=== PATIENT | female | born 1990 | race Caucasian/White ===

== ENCOUNTER → 2017-12-10 | Outpatient (CLI) | payer OTHER | END | disposition home or self-care (01) | LOC: C.PAPS 13:13 | PROVIDERS: ATTEND Physician Assistant | DX: Z01.419 Encounter for gynecological examination (general) (routine) without abnormal findings (principal); R87.610 Atypical squamous cells of undetermined significance on cytologic smear of cervix (ASC-US) ==

== ENCOUNTER → 2018-02-04 | Outpatient (CLI) | payer OTHER | END | disposition home or self-care (01) | LOC: C.PATHSPEC 17:44 | PROVIDERS: ATTEND Obstetrics & Gynecology | DX: R87.612 Low grade squamous intraepithelial lesion on cytologic smear of cervix (LGSIL) (principal); R87.610 Atypical squamous cells of undetermined significance on cytologic smear of cervix (ASC-US) ==

== ENCOUNTER 2023-09-13 16:00 | Inpatient (IN) ==
[2023-09-13] MEDS ORDERED: LIDOCAINE 1% LOCAL 20 ML VIAL ONE (16:27)
--- NOTE | 2023-09-13 16:53 | Delivery Summary ---
Vaginal Delivery Summary Date of Service September 13, 2023 Vaginal Delivery Summary and 2nd Degree LAC Spontaneous vaginal delivery group B strep -38 weeks arrived in active labor she arrived at [facility] and quickly progressed to fully dilated I offered epidural I also offered artificial rupture of membranes as I did not really think there was time for epidural to impact her pain she agreed with artificial rupture of membranes she then pushed over several contractions delivery of baby in occiput anterior position once the head was born there were 2 loose nuchal cords that were passed over the baby's head gentle traction on the baby combined with maternal expulsive efforts with no excessive force easy delivery live vigorous female delayed cord clamping the cord was eventually cut and clamped cord blood up to 6 obtained placenta removed with traction IM Pitocin was started as we did not have an IV at she had tearing in the right urethral region and a second-degree tear a Mcdonald catheter was placed in her bladder prior to avoid closure of the urethra during the repair and the repair was done with 3-0 Vicryl with several interrupted sutures of 3-0 Vicryl was then used to repair the second-degree tear in the usual fashion sponge and instrument counts were correct estimated blood loss 300 mL of note use local anesthetic into the vulva and vagina regions 1% lidocaine [facility] Vaginal Delivery Charge Delivery Type Details: and 2nd Degree LAC
[2023-09-13] MEDS ORDERED: OXYTOCIN 30 UNITS/500ML NSS IV ONE (16:55)
[2023-09-13] MEDS ORDERED: BENZOCAINE 20% SPRY 85 APPLN/85 GM CAN EXT PRN (17:04)
[2023-09-13] MEDS ORDERED: OXYTOCIN 30 UNITS/NSS 30 UNITS/500 ML BAG IV PRN (17:04)
[2023-09-13] MEDS ORDERED: DIPHTHERIA/TETANUS/PERTUSSIS Vaccine (Tdap, Age 7+yrs) 0.5mL SYR/VL IM ONE (17:04)
[2023-09-13] MEDS ORDERED: HYDROCORTISONE ACETATE 25 MG SUPP PR PRN (17:04)
[2023-09-13] MEDS ORDERED: ACETAMINOPHEN 325 MG TAB PO PRN (17:04)
[2023-09-13] MEDS ORDERED: bisacodyL 10 MG SUPP PR PRN (17:04)
[2023-09-13] MEDS ORDERED: OXYTOCIN 10 UNITS/ML VIAL IM ONE (17:15)
[2023-09-13] MEDS ORDERED: LACTATED RINGER'S 1,000 ML IV ONE (19:36)
[2023-09-13 20:04] LABS: Hematocrit (blood only) 34.5 % (37.0-47.0); Hemoglobin 12.3 g/dl (12.0-16.0); Mean Corpuscular Hemoglobin 31.7 pg (25.0-34.0); Mean Corpuscular Hgb Conc 35.7 g/dL (32.0-36.0); Mean Corpuscular Volume 88.9 fL (80.0-100.0); Platelet Count 171 K/uL (130-400); RDW Standard Deviation 42.3 fL (36.4-46.3); Red Blood Count 3.88 M/uL (4.20-5.40); White Blood Count 18.02 K/ul (4.8-10.8)
[2023-09-13] MEDS: FLUoxetine HCL 20 MG CAP PO SCH (21:12)
[2023-09-13] MEDS: DOCUSATE SODIUM 100 MG CAP PO SCH (22:18)
[2023-09-13] MEDS: IBUPROFEN 600 MG TAB PO PRN (22:18)
[2023-09-14] MEDS: IBUPROFEN 600 MG TAB PO PRN ×5 (03:36→21:32)
--- NOTE | 2023-09-14 06:39 | Obstetrical Progress Note ---
Date of Service September 14, 2023 Assessment & Plan (1) Encounter for care and examination after delivery: Plan -Pt doing well clinically -Vital signs reviewed and WNL -HGB reviewed -Blood type A+ -Rubella no immune, MMR vaccine today -Encourage ambulation -Monitor and control pain with Motrin prn -Monitor lochia -Encourage Admission and Anticipated Discharge Date Admission Date: September 13, 2023 Supervising Physician Co-Signing Physician Notes Resident Physician Supervision Note: I was present with Dr. Rush during the history and exam. I discussed the case with the resident and agree with the findings and plan as documented in the note. Any exceptions or clarifications are listed here: [None] Documented By: Day Jara MD, FACOG Subjective 32 yo post- day 1 s/p Ambulation: ambulating normally Voiding: no voiding problems Passing Gas:: Yes Diet Tolerance:: regular diet Lochia:: Small Feeding Type:: Current Pain Level:controlled Resting comfortably this AM in NAD. Denies ESTEVEZ, CP, SOB, N/V/D, LE pain/swelling. Review of Systems Review of Systems: All systems reviewed & are unremarkable except as noted in HPI & below Physical Exam Physical Exam: General: patient resting comfortably, NAD, non-toxic in appearance, AA&O x 4, answers questions appropriately. Skin: warm, dry, intact HEENT: NC/AT, anicteric sclera, conjunctiva without injection, moist mucus m embranes. Heart: +S1/S2, regular, no m/r/g Lungs: equal air entry bilaterally, no rales/rhonchi/wheezes Abd: +BS, soft, NT/ND, uterine fundus firm at umbilicus Ext: warm, no clubbing/cyanosis or edema, Yara's neg. Neuro: nonfocal, patient AA&O x 4, speech intact, no facial droop, moving all extremities on command. Results & Data Vital Signs (Past 12 Hours) Vital Signs Temp Pulse Pulse Pulse Resp BP BP 09/14/23 03:45 36.5 C 72 18 115/67 09/13/23 23:55 36.7 C 71 18 115/71 09/13/23 21:38 36.5 C 74 18 107/70 09/13/23 21:07 74 112/63 09/13/23 20:52 76 115/65 09/13/23 20:37 68 111/60 09/13/23 20:34 71 110/57 L 09/13/23 20:27 71 110/62 09/13/23 20:22 75 107/65 09/13/23 20:17 69 105/65 09/13/23 20:12 71 105/63 09/13/23 20:07 69 109/63 09/13/23 20:02 71 109/61 09/13/23 19:57 71 108/60 09/13/23 19:52 70 107/59 L 09/13/23 19:50 70 108/63 09/13/23 19:43 72 126/58 L 09/13/23 19:37 71 115/68 09/13/23 19:31 106 H 115/59 L 09/13/23 19:26 65 94/51 L 09/13/23 19:07 69 103/58 L Pulse Ox O2 Del Method 09/14/23 03:45 09/13/23 23:55 09/13/23 21:38 96 Room Air 09/13/23 21:07 09/13/23 20:52 09/13/23 20:37 09/13/23 20:34 09/13/23 20:27 09/13/23 20:22 09/13/23 20:17 09/13/23 20:12 09/13/23 20:07 09/13/23 20:02 09/13/23 19:57 09/13/23 19:52 09/13/23 19:50 09/13/23 19:43 09/13/23 19:37 09/13/23 19:31 09/13/23 19:26 09/13/23 19:07 Resident Activity Tracking Resident Involvement: Resident Care Provided Care Provided: OB Delivery
[2023-09-14] MEDS ORDERED: MEASLES, MUMPS & RUBELLA VIRUS VACCINE (MMR) VIAL SQ ONE (06:55)
[2023-09-14 08:44] LABS: Hematocrit (blood only) 30.7 % (37.0-47.0); Hemoglobin 10.9 g/dl (12.0-16.0); Mean Corpuscular Hemoglobin 32.2 pg (25.0-34.0); Mean Corpuscular Hgb Conc 35.5 g/dL (32.0-36.0); Mean Corpuscular Volume 90.8 fL (80.0-100.0); Platelet Count 159 K/uL (130-400); RDW Coefficient of Variation 13.1 % (11.5-14.5); RDW Standard Deviation 42.6 fL (36.4-46.3); Red Blood Count 3.38 M/uL (4.20-5.40); White Blood Count 14.86 K/ul (4.8-10.8)
[2023-09-14] MEDS: PRENATAL VITAMIN 1 TAB PO SCH (08:59)
[2023-09-14] MEDS: DOCUSATE SODIUM 100 MG CAP PO SCH ×2 (08:59→20:52)
[2023-09-14] MEDS ORDERED: FLUoxetine HCL 10 MG CAP PO SCH (09:00)
[2023-09-14] MEDS ORDERED: bisacodyL 5 MG TABEC PO SCH (20:00)
[2023-09-14] MEDS: FLUoxetine HCL 20 MG CAP PO SCH (20:53)
[2023-09-15] MEDS: IBUPROFEN 600 MG TAB PO PRN ×2 (02:12→07:28)
--- NOTE | 2023-09-15 07:54 | Obstetrical Progress Note ---
Date of Service September 15, 2023 Assessment & Plan (1) Supervision of normal first : , ready for D/C home, instructions reviewed and all questions answered. Subjective Ambulation: ambulating normally Voiding: no voiding problems Passing Gas:: Yes Diet Tolerance:: regular diet Lochia:: Small Feeding Type:: breast feeding Physical Exam Patient during visit, exam limited to avoid interruption. Constitutional WD/WN, vitals as above Respiratory normal respiratory effort Chest (Breasts) Chest: normal inspection of chest Psychiatric A+Ox3, euthymic affect Results & Data Vital Signs (Past 12 Hours) Vital Signs Temp Pulse Resp BP Pulse Ox O2 Del Method 09/14/23 23:03 98.4 F 68 18 100/63 97 Room Air
[2023-09-15] MEDS: DOCUSATE SODIUM 100 MG CAP PO SCH (08:15)
[2023-09-15] MEDS: PRENATAL VITAMIN 1 TAB PO SCH (08:15)
== END 2023-09-15 11:04 | disposition home or self-care (01) | DRG 807 ==
LOC: OPB 16:00 → 4S1 16:02 → 4E2 22:13

== ENCOUNTER 2025-04-12 16:56 | Inpatient (IN) ==
[2025-04-12] MEDS ORDERED: OXYTOCIN 30 UNITS/NSS 30 UNITS/500 ML BAG IV PRN ×2 (17:35→19:31)
[2025-04-12] MEDS ORDERED: CALCIUM CARBONATE 500 MG CHEWABLE TAB PO PRN (17:35)
[2025-04-12] MEDS ORDERED: LIDOCAINE 1% LOCAL 20 ML VIAL INFIL PRN (17:35)
--- NOTE | 2025-04-12 17:42 | History & Physical Report ---
Date of Service April 12, 2025 Assessment & Plan (1) Normal labor: Plan admit, labs, desires epidural. place iv and bolus. arom when able. fhts categ 1. History of Present Illness Chief Complaint: regular ctx. Primary Care Provider: Fredrick Vega, DO 34yo at 38+wks ega presents to LD with cc of regular ctx. Patient arrived to LD reporting regular ctx. No rom, no vb. +FM Last delivery pt states stayed home a while and then when she came in was ready to deliver. PNC c/b 1. needs mmr pp PNL rh pos, rubella non immune, gbs neg OBH: x 1 GYNH: nl paps no stds. Allergies Allergy/AdvReac Type Severity Reaction Status Date / Time No Known Drug Allergies Allergy Verified 04/06/25 15:49 Home Medications Medication Instructions Recorded Confirmed Type prenat.vits,sean,gtu-bajh-ljicp 1 tab PO DAILY 02/08/23 04/12/25 History fluoxetine 20 mg capsule mg PO DAILY 02/15/25 04/06/25 History Patient History Medical History (Updated 04/12/25 @ 17:42 by Yomaira Streeter MD, FACOG) Encounter for care and examination after delivery Shingles History of chicken pox Surgical History History of wisdom tooth extraction Family History Father Type 2 diabetes mellitus Kidney disease Mother Depression Grandmother (Maternal) Breast cancer Denies family history of Ovarian cancer Prostate cancer Myocardial infarction Colorectal cancer Social History (Updated 09/16/24 @ 09:47 by Sonal Tipton) Smoking Status: Never smoker Second Hand Exposure: No; Do You Dip or Chew Tobacco: No; Hx Alcohol Use: No Hx Substance Use: No Preferred Language: Mosotho Communication Ability: Effective Visual Impairment: No Limitations Hearing Ability: Normal Dump Truck Driver Off Highway Required: No Beliefs That Will Affect Care: None marital status: marital status details: Geraldo Mann (31) [phone] Current Living Situation: Spouse and Family Current Living Situation Comment: Lives with , daughter, dog current occupational status: employed 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[employer] Feels Safe at Home: Yes Childhood Exposure to Second-Hand Smoke: No Dental Care, Regularly: Yes Physical Activity Frequency: 3-4 Times per Week Seatbelt Use: always Sunscreen Use: Yes Assistive Devices: None Review of Systems as per Subjective / HPI Physical Exam Constitutional: WD/WN, vitals as above Respiratory: normal respiratory effort, lungs clear to auscultation Cardiovascular: Rate/Rhythm: regular rate and regular rhythm Gastrointestinal (Abdomen): soft gravid nt efw 7# Musculoskeletal: no edema nontender calves Neurologic: grossly normal Psychiatric: A+Ox3, euthymic affect Genitourinary: Manual OB Exam: + cervical dilation 7 cm, + cervical effacement 90% and + station + 1 OB Exam Monitor Tracing: + external FHT monitor used, + external uterine monitor used (q2-5), + category I and + normal FHT variability Results & Data Vital Signs (Past 12 Hours) Vital Signs Pulse BP 04/12/25 17:06 66 109/61 Coding Level of Care Code None Diagnoses Normal labor O80; Z37.9
[2025-04-12] MEDS: LACTATED RINGER'S 1,000 ML IV PRN (17:45)
[2025-04-12] MEDS ORDERED: BUPIVACAINE 0.25% PF 30 ML VIAL EPI PRN (18:14)
[2025-04-12] MEDS ORDERED: fentANYL 2 MCG/ML BUPIVacaine 0.125%-NSS 100ML BAG EPI PRN (18:14)
[2025-04-12] MEDS ORDERED: ROPIVACAINE 0.5% PF 5 MG/ML 20 ML VIAL EPI PRN (18:14)
[2025-04-12] MEDS ORDERED: diphenhydrAMINE 50 MG/ML VIAL IV PRN (18:14)
[2025-04-12] MEDS ORDERED: SODIUM CHLORIDE 0.9% PF INJ 10 ML VIAL EPI PRN (18:14)
[2025-04-12] MEDS ORDERED: NALBUPHINE HCL INJ 10 MG/ML AMP IV PRN (18:14)
[2025-04-12] MEDS ORDERED: LIDOCAINE 2% MPF LOCAL 5 ML VIAL EPI PRN (18:14)
[2025-04-12] MEDS ORDERED: SODIUM CHLORIDE 0.9% PF INJ 10 ML VIAL EPI STA (18:14)
[2025-04-12] MEDS ORDERED: NALOXONE HCL 0.4 MG/1 ML VIAL/CARP IV PRN (18:14)
[2025-04-12] MEDS ORDERED: NALOXONE HCL 1 MG in SODIUM CHLORIDE 0.9% 1,000 ML IV PRN (18:14)
--- NOTE | 2025-04-12 18:16 | Anesthesiology Consultation ---
Date of Service April 12, 2025 Assessment & Plan Chart Review Chart Review: Patient NOT seen in Pre Admission Testing and Acceptable Risk for Labor Epidural Consults Requested none ASA ASA2 Proposed Anesthesia Anesthesia Type: Labor Epidural Risk / Benefits Reviewed With: PT / POA / Parent / Guardian, Accepts Plan and Informed Consent Obtained History Height/Weight Height: 5 ft 10 in Weight: 78.471 kg Allergies Allergy/AdvReac Type Severity Reaction Status Date / Time No Known Drug Allergies Allergy Verified 04/06/25 15:49 Medications Home Medications Medication Instructions Recorded Confirmed Last Taken prenat.vits,sean,pab-auwm-xtuwy 1 tab PO DAILY 02/08/23 04/12/25 04/11/25 19:30 fluoxetine 20 mg capsule mg PO DAILY 02/15/25 04/06/25 04/11/25 19:30 Active Medications Generic Name Dose Route Start Last Admin Trade Name Freq PRN Reason Stop Dose Admin Lactated Ringer's 1,000 mls @ 125 mls/hr 04/12/25 17:35 04/12/25 17:45 Lr IV 04/14/25 17:34 999 mls/hr .Q8H PRN Administration L&D Protocol Protocol NPO Date Last Intake of Fluids: 04/12/25 Time Last Intake of Fluids: 18:00 Date Last Intake of Solids: 04/12/25 Time Last Intake of Solids: 12:00 Past Medical History Medical History (Updated 04/12/25 @ 17:42 by Yomaira Streeter MD, FACOG) Encounter for care and examination after delivery Shingles History of chicken pox Past Family History Family History Father Type 2 diabetes mellitus Kidney disease Mother Depression Grandmother (Maternal) Breast cancer Denies family history of Ovarian cancer Prostate cancer Myocardial infarction Colorectal cancer Past Surgical History Surgical History History of wisdom tooth extraction Past Anesthesia History No Hx of Anesthesia Complications and No Family Hx of Anesthesia Complications Social History Smoking Status: Never smoker Do You Dip or Chew Tobacco: No Hx Alcohol Use: No Hx Substance Use: No substance use type: does not use Last Used Substance: Days (ago) Physical Exam Vital Signs Last Vital Signs Temp 36.5 C 04/12/25 17:15 Pulse 65 04/12/25 18:13 Resp 18 04/12/25 17:15 BP 109/61 04/12/25 17:15 Pulse Ox 99 04/12/25 18:13 O2 Del Method Room Air 04/12/25 17:15 ENMT Mouth: no TMJ abnormality Thyromental Distance: > or= 3.5 Finger Breadths Mallampati Class: II Neck normal visual inspection and trachea midline; neck extension not limited Respiratory normal respiratory effort Auscultation: lungs clear to auscultation bilaterally Cardiovascular Rate/Rhythm: regular rate and regular rhythm Heart Sounds: no murmur Musculoskeletal Spine: normal cervical ROM Extremities: full ROM of extremities Neurologic moves all extremities Psychiatric Orientation: alert and oriented x 3
[2025-04-12] MEDS: LIDOCAINE 2%/EPINEPHRINE 1:200,000 20 ML PF EPI STA (18:31)
[2025-04-12] MEDS: BUPIVACAINE 0.25% PF 30 ML VIAL EPI STA (18:31)
[2025-04-12] MEDS: LIDOCAINE 2%/EPINEPHRINE 1:200,000 20 ML PF ONE (18:31)
[2025-04-12] MEDS: BUPIVACAINE 0.25% PF 30 ML VIAL ONE (18:31)
[2025-04-12 18:32] LABS: Hematocrit (blood only) 34.8 % (37.0-47.0); Hemoglobin 12.2 g/dl (12.0-16.0); Mean Corpuscular Hemoglobin 31.2 pg (25.0-34.0); Mean Corpuscular Volume 89.0 fL (80.0-100.0); Platelet Count 145 K/uL (130-400); RDW Standard Deviation 40.7 fL (36.4-46.3); Red Blood Count 3.91 M/uL (4.20-5.40); White Blood Count 15.91 K/ul (4.8-10.8)
[2025-04-12] MEDS: fentANYL 2 MCG/ML BUPIVacaine 0.125%-NSS 100ML BAG ONE (18:36)
--- NOTE | 2025-04-12 19:22 | Labor Progress Brief Note ---
Date of Service April 12, 2025 Subjective comfortable now with epidural. Assessment & Plan (1) Normal labor: Plan good cx change. will see how arom helps labor. may need pit aug. order placed. fhts categ 1. Physical Exam Constitutional: WD/WN, vitals as above Genitourinary: Manual OB Exam: + cervical dilation 9 cm, + cervical effacement 100% and + station + 2 OB Exam Monitor Tracing: + external FHT monitor used, + external uterine monitor used (q5), + category I and + normal FHT variability Results & Data Vital Signs (Past 12 Hours) Vital Signs Temp Pulse Resp BP Pulse Ox O2 Del Method 04/12/25 19:18 64 100 04/12/25 19:17 69 106/58 L 04/12/25 19:15 58 L 100/55 L 04/12/25 19:13 63 101/56 L 100 04/12/25 19:12 68 101/64 04/12/25 19:09 57 L 96/58 L 04/12/25 19:08 100 04/12/25 19:08 60 04/12/25 19:08 59 L 99/58 L 04/12/25 19:05 97.7 F 68 16 100/62 04/12/25 19:03 60 97/54 L 100 04/12/25 19:01 62 93/50 L 04/12/25 18:59 62 97/54 L 04/12/25 18:58 68 100 04/12/25 18:57 63 97/54 L 04/12/25 18:55 60 97/56 L 04/12/25 18:53 60 99/55 L 100 04/12/25 18:51 68 97/53 L 04/12/25 18:49 60 95/51 L 04/12/25 18:48 65 100 04/12/25 18:47 60 98/54 L 04/12/25 18:45 62 97/56 L 04/12/25 18:43 64 97/55 L 100 04/12/25 18:41 62 96/53 L 04/12/25 18:39 62 93/50 L 04/12/25 18:38 71 99 04/12/25 18:37 67 94/50 L 04/12/25 18:35 62 90/53 L 04/12/25 18:33 66 96/52 L 98 07/14/25 18:31 60 98/54 L 04/12/25 18:30 63 102/49 L 04/12/25 18:28 99 04/12/25 18:28 62 04/12/25 18:28 74 89 L 04/12/25 18:23 78 97 04/12/25 18:18 66 98 04/12/25 18:17 69 120/57 L 04/12/25 18:16 75 93 04/12/25 18:13 65 99 04/12/25 18:08 65 98 04/12/25 18:03 63 99 04/12/25 17:58 64 97 04/12/25 17:53 75 98 04/12/25 17:48 76 100 04/12/25 17:43 66 98 04/12/25 17:15 97.7 F 66 18 109/61 Room Air 04/12/25 17:06 66 109/61 Coding Level of Care Code None Diagnoses Normal labor O80; Z37.9
[2025-04-12] MEDS: OXYTOCIN 30 UNITS/NSS 30 UNITS/500 ML BAG IV PRN (20:01)
--- NOTE | 2025-04-12 20:10 | Delivery Summary ---
Vaginal Delivery Summary Date of Service April 12, 2025 Vaginal Delivery Summary and 2nd Degree LAC The patient dilated to complete and pushed to deliver a viable male infant Apgars 8 and 9 via over 2nd degree perineal laceration. Mouth and nose bulb suctioned at perineum. Shoulders and body delivered with ease. Infant was vigorous and crying at . Cord clamped at 60 seconds of life and to maternal abdomen where the cord was then doubly clamped and cut. Placenta delivered spontaneously and intact, three-vessel cord. Hemostasis achieved with dilute pitocin and uterine massage and drainage of the bladder for approximately 200 cc under sterile conditions. Laceration repaired in layers with 3-0 vicryl. Cervix and sulci intact. QBL 93 cc. Mother and baby stable in recovery. [facility] Charge Delivery Type Details: and 2nd Degree LAC
[2025-04-12] MEDS ORDERED: HYDROCORTISONE ACETATE 25 MG SUPP PR PRN (20:13)
[2025-04-12] MEDS ORDERED: BENZOCAINE 20% SPRY 85 APPLN/85 GM CAN EXT PRN (20:13)
[2025-04-12] MEDS ORDERED: ACETAMINOPHEN 325 MG TAB PO PRN (20:13)
--- NOTE | 2025-04-12 20:27 | Anesthesia Procedure Note ---
Date of Service April 12, 2025 Anesthesia Post Epidural Note Vital Signs Vital Signs: Temp Pulse Resp BP Pulse Ox O2 Del Method 36.5 C 65 16 112/58 L 98 Room Air 04/12/25 20:21 04/12/25 20:23 04/12/25 20:21 04/12/25 20:19 04/12/25 20:23 04/12/25 17:15 Pain Intensity Abdomen: Pain Intensity: 0 Notes Mental Status: alert / awake / arousable and participated in evaluation Nausea / Vomiting: adequately controlled Pain: adequately controlled Airway Patency, RR, SpO2: stable & adequate BP & HR: stable & adequate Hydration State: stable & adequate Neuraxial Anesthesia: was administered and sensory block is resolving Anesthetic Complications: no major complications apparent Epidural: Removed without complications and With tip intact
[2025-04-12] MEDS: OXYTOCIN 20 UNITS in LACTATED RINGER'S 1,000 ML IV SCH (21:22)
[2025-04-12] MEDS: IBUPROFEN 600 MG TAB PO PRN (21:26)
[2025-04-12] MEDS: DOCUSATE SODIUM 100 MG CAP PO SCH (23:57)
--- NOTE | 2025-04-13 06:16 | Obstetrical Progress Note ---
Date of Service <Anderson Mittal MD - Last Filed: 04/13/25 08:07> April 13, 2025 Assessment & Plan <Anderson Mittal MD - Last Filed: 04/13/25 08:07> (1) care and examination: 34yo post- day 1 s/p Fells well today. Continue post- care Encourage ambulation and Pain controlled with Ibuprofen Vitals and Hgb stable Discharge home today, follow up with OB provider in 6 weeks. D/c instructions discussed <Yomaira Streeter MD, FACOG - Last Filed: 04/13/25 08:15> (1) care and examination: Subjective <Anderson Mittal MD - Last Filed: 04/13/25 08:07> 34yo post- day 1 s/p Ambulation: Ambulating normally Voiding: No voiding problems Passing Gas:: Yes Diet Tolerance:: regular diet Lochia:: Small Feeding Type:: Current Pain Level: 2/10 controlled with Ibuprofen Resting comfortably this AM in NAD. Denies ESTEVEZ, CP, SOB, N/V/D, LE pain/swelling. Physical Exam <Anderson Mittal MD - Last Filed: 04/13/25 08:07> General: patient resting comfortably, NAD, non-toxic in appearance, answers questions appropriately Skin: warm, dry, intact Heart: S1/S2 heard, regular, no m/r/g Lungs: equal air entry bilaterally, no rales/rhonchi/wheezes Abd: Normoactive BS, soft, NT/ND, uterine fundus firm below umbilicus Ext: warm, no clubbing/cyanosis or edema, Yara's neg Neuro: nonfocal, patient AAOx4, speech intact, no facial droop, moving all extremities on command Results & Data <Anderson Mittal MD - Last Filed: 04/13/25 08:07> Vital Signs (Past 12 Hours) Vital Signs Temp Pulse Pulse Resp BP BP Pulse Ox 04/13/25 03:15 36.7 C 60 14 93/56 L 97 04/12/25 23:30 36.6 C 66 14 103/66 97 04/12/25 22:04 67 106/49 L 04/12/25 22:03 63 96 04/12/25 21:58 67 98 04/12/25 21:53 62 98 04/12/25 21:49 71 108/54 L 04/12/25 21:48 70 99 04/12/25 21:47 61 107/57 L 04/12/25 21:43 61 97 04/12/25 21:38 58 L 97 04/12/25 21:33 65 97 04/12/25 21:28 60 98 04/12/25 21:23 58 L 99 04/12/25 21:18 62 99 04/12/25 21:17 60 92 04/12/25 21:13 60 100 04/12/25 21:08 56 L 100 04/12/25 21:04 60 103/71 04/12/25 21:03 60 100 04/12/25 20:58 55 L 100 04/12/25 20:53 60 99 04/12/25 20:49 57 L 103/59 L 04/12/25 20:48 59 L 100 04/12/25 20:43 60 99 04/12/25 20:38 59 L 99 04/12/25 20:34 58 L 104/56 L 04/12/25 20:33 62 99 04/12/25 20:28 56 L 98 04/12/25 20:23 65 98 04/12/25 20:21 16 04/12/25 20:21 36.5 C 16 04/12/25 20:19 66 112/58 L 04/12/25 20:18 66 99 04/12/25 20:13 63 99 04/12/25 20:08 70 97 04/12/25 20:04 61 103/50 L 04/12/25 20:03 64 97 04/12/25 19:58 67 97 04/12/25 19:53 65 99 04/12/25 19:49 71 111/64 04/12/25 19:48 66 100 04/12/25 19:43 69 100 04/12/25 19:38 70 100 04/12/25 19:34 64 110/72 04/12/25 19:33 70 100 04/12/25 19:28 67 100 04/12/25 19:23 65 100 04/12/25 19:18 64 100 04/12/25 19:17 69 106/58 L 04/12/25 19:15 58 L 100/55 L 04/12/25 19:13 63 101/56 L 100 04/12/25 19:12 68 101/64 04/12/25 19:09 57 L 96/58 L 04/12/25 19:08 100 04/12/25 19:08 60 04/12/25 19:08 59 L 99/58 L 04/12/25 19:05 36.5 C 68 16 100/62 04/12/25 19:03 60 97/54 L 100 04/12/25 19:01 62 93/50 L 04/12/25 18:59 62 97/54 L 04/12/25 18:58 68 100 04/12/25 18:57 63 97/54 L 04/12/25 18:55 60 97/56 L 04/12/25 18:53 60 99/55 L 100 04/12/25 18:51 68 97/53 L 04/12/25 18:49 60 95/51 L 04/12/25 18:48 65 100 04/12/25 18:47 60 98/54 L 04/12/25 18:45 62 97/56 L 04/12/25 18:43 64 97/55 L 100 04/12/25 18:41 62 96/53 L 04/12/25 18:39 62 93/50 L 04/12/25 18:38 71 99 04/12/25 18:37 67 94/50 L 04/12/25 18:35 62 90/53 L 04/12/25 18:33 66 96/52 L 98 04/12/25 18:31 60 98/54 L 04/12/25 18:30 63 102/49 L 04/12/25 18:28 99 04/12/25 18:28 62 04/12/25 18:28 74 89 L 04/12/25 18:23 78 97 04/12/25 18:18 66 98 04/12/25 18:17 69 120/57 L 04/12/25 18:16 75 93 O2 Del Method 04/13/25 03:15 Room Air 04/12/25 23:30 Room Air 04/12/25 22:04 04/12/25 22:03 04/12/25 21:58 04/12/25 21:53 04/12/25 21:49 04/12/25 21:48 04/12/25 21:47 04/12/25 21:43 04/12/25 21:38 04/12/25 21:33 04/12/25 21:28 04/12/25 21:23 04/12/25 21:18 04/12/25 21:17 04/12/25 21:13 04/12/25 21:08 04/12/25 21:04 04/12/25 21:03 04/12/25 20:58 04/12/25 20:53 04/12/25 20:49 04/12/25 20:48 04/12/25 20:43 04/12/25 20:38 04/12/25 20:34 04/12/25 20:33 04/12/25 20:28 04/12/25 20:23 04/12/25 20:21 04/12/25 20:21 04/12/25 20:19 04/12/25 20:18 04/12/25 20:13 04/12/25 20:08 04/12/25 20:04 04/12/25 20:03 04/12/25 19:58 04/12/25 19:53 04/12/25 19:49 04/12/25 19:48 04/12/25 19:43 04/12/25 19:38 04/12/25 19:34 04/12/25 19:33 04/12/25 19:28 04/12/25 19:23 04/12/25 19:18 04/12/25 19:17 04/12/25 19:15 04/12/25 19:13 04/12/25 19:12 04/12/25 19:09 04/12/25 19:08 04/12/25 19:08 04/12/25 19:08 04/12/25 19:05 04/12/25 19:03 04/12/25 19:01 04/12/25 18:59 04/12/25 18:58 04/12/25 18:57 04/12/25 18:55 04/12/25 18:53 04/12/25 18:51 04/12/25 18:49 04/12/25 18:48 04/12/25 18:47 04/12/25 18:45 04/12/25 18:43 04/12/25 18:41 04/12/25 18:39 04/12/25 18:38 04/12/25 18:37 04/12/25 18:35 04/12/25 18:33 04/12/25 18:31 04/12/25 18:30 04/12/25 18:28 04/12/25 18:28 04/12/25 18:28 04/12/25 18:23 04/12/25 18:18 04/12/25 18:17 04/12/25 18:16 Supervising Physician <Yomaira Streeter MD, FACOG - Last Filed: 04/13/25 08:15> Co-Signing Physician Notes Resident Physician Supervision Note: I was present with Dr. Mittal during the history and exam. I discussed the case with the resident and agree with the findings and plan as documented in the note. Any exceptions or clarifications are listed here: stable, eating, voiding, ambulating. no bleeding concerns. . abd soft ff 2 down nt, ext nt calves. ppd#1 s/p , desires dc home later today, instructions reviewed, f/u 6 wk pp.. rhpos,mmr ordered,. Documented By: Yomaira Streeter MD, FACOG Resident Activity Tracking <Anderson Mittal MD - Last Filed: 04/13/25 08:07> Resident Involvement: Resident Care Provided Care Provided: OB Delivery (PP)
[2025-04-13 06:58] VITALS: RESP 18
[2025-04-13] MEDS: PRENATAL VITAMIN 1 TAB PO SCH (08:38)
[2025-04-13] MEDS: DIPHTHER/TETAN/PERTUS Vaccine (Tdap, Adol/Adult) 0.5mL IM ONE (08:39)
[2025-04-13 11:33] VITALS: O2SAT 97
[2025-04-13] MEDS: SODIUM CHLORIDE 0.9% PF INJ 10 ML VIAL ONE (13:35)
[2025-04-13 15:11] VITALS: BP 97/59; PULSE 65; TEMP 97.9
[2025-04-13] MEDS: MEASLES, MUMPS & RUBELLA VIRUS VACCINE (MMR) 0.5ML VIAL SQ ONE (15:26)
[2025-04-13] MEDS: MEASLES, MUMPS & RUBELLA VIRUS VACCINE (MMR) 0.5ML VIAL ONE (15:31)
== END 2025-04-13 20:30 | disposition home or self-care (01) | DRG 807 ==
LOC: OPB 16:56 → 4S1 16:58 → 4E2 23:12